=== PATIENT | male | born 1995 | race Caucasian/White ===

== ENCOUNTER 2019-01-28 13:35 | Emergency (ER) | payer BC, OTHER ==
[2019-01-28] MEDS ORDERED: Ibuprofen 800 MG Tab PO ONE (14:05)
[2019-01-28 14:14] VITALS: BP 132/77
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
--- NOTE | 2019-01-28 14:29 | CR ---
EXAMINATION: Right ankle HISTORY: Pain COMPARISON: None TECHNIQUE: 3 views FINDINGS/IMPRESSION: There is no acute osseous abnormality, dislocation, or fracture. Bone mineralization and joint spaces are preserved. Soft tissue swelling is noted surrounding the right ankle, most prominent over the lateral malleolus.
== END 2019-01-28 14:38 | disposition home or self-care (01) ==
LOC: MW.ED 13:35
DX: S99.911A Unspecified injury of right ankle, initial encounter (principal); V29.9XXA Motorcycle rider (driver) (passenger) injured in unspecified traffic accident, initial encounter
CPT/HCPCS: 73610; 99283; A9270

== ENCOUNTER 2019-06-03 09:45 | Day surgery (SDC) | payer BC, OTHER ==
[~2019-06-03 09:45] MED LIST: Lactated Ringers 1,000 ML IV SCH; Midazolam 1 MG/ML 2 ML SDV ONE; Propofol 200 MG/20 ML SDV ONE
--- NOTE | 2019-06-03 10:24 | PCM.PREANE ---
Preanesthetic Assessment - Anesthesia/Transfusion/Family Hx Anesthesia History: Prior Anesthesia Without Reaction Other Type of Anesthesia Reaction Comment: mother gets jittery and anxious when waking up from anesthesia Family History of Anesthesia Reaction: No Transfusion History: No Prior Transfusion(s) Intubation History: Unknown - Review of Systems General: No Symptoms Pulmonary: No Symptoms Cardiovascular: No Symptoms Neurological: No Symptoms, Change in Speech - Physical Assessment NPO Status Date: 06/02/19 NPO Status Time: 23:30 Vital Signs: Last Vital Signs Temp 37.0 C 06/03/19 10:11 Pulse 105 H 06/03/19 10:11 Resp 18 06/03/19 10:11 BP 136/78 06/03/19 10:11 Pulse Ox 99 06/03/19 10:11 Height: 5 ft 10 in Weight: 84.368 kg ASA Class: 2 Mental Status: Alert & Oriented x3 Airway Class: Mallampati = 2 Dentition: Reports: Normal Dentition, Broken Tooth/Teeth (upper and lower on the side) Thyro-Mental Finger Breadths: 3 Mouth Opening Finger Breadths: 3 ROM/Head Extension: Full Lungs: Clear to Auscultation, Normal Respiratory Effort Cardiovascular: Regular Rate, Regular Rhythm - Allergies Allergies/Adverse Reactions: Allergies Allergy/AdvReac Type Severity Reaction Status Date / Time No Known Allergies Allergy Verified 05/23/19 09:14 - Blood Blood Available: No - Anesthesia Plan Pre-Op Medication Ordered: None - Acknowledgements Anesthesia Type Planned: MAC Pt an Appropriate Candidate for the Planned Anesthesia: Yes Alternatives and Risks of Anesthesia Discussed w Pt/Guardian: Yes Pt/Guardian Understands and Agrees with Anesthesia Plan: Yes PreAnesthesia Questionnaire HEENT History: Reports: Other (See Below) Other HEENT History: glasses/contacts Cardiovascular History: Reports: None Respiratory History: Reports: None Gastrointestinal History: Reports: Other (See Below) Other Gastrointestinal History: apigastric pain, N&V, Genitourinary History: Reports: None Musculoskeletal History: Reports: Back Pain, Chronic Neurological History: Reports: Concussion Psychiatric History: Reports: Addiction (used heroin and meth 4 days ago, trying to quit), Anxiety, Depression Endocrine/Metabolic History: Reports: None Hematologic History: Reports: None Immunologic History: Reports: None Oncologic (Cancer) History: Reports: None Dermatologic History: Reports: Other (See Below) Other Dermatologic History: 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, rash on chest - Infectious Disease History Infectious Disease History: Reports: Chicken Pox - Past Surgical History Head Surgeries/Procedures: Reports: None HEENT Surgical History: Reports: Tonsillectomy Cardiovascular Surgical History: Reports: None Respiratory Surgical History: Reports: None GI Surgical History: Reports: None Male Surgical History: Reports: None Endocrine Surgical History: Reports: None Neurological Surgical History: Reports: None Musculoskeletal Surgical History: Reports: None Oncologic Surgical History: Reports: None Dermatological Surgical History: Reports: None - SUBSTANCE USE Smoking Status *Q: Current Every Day Smoker (1 ppd) Tobacco Use Within Last Twelve Months: Cigarettes Recreational Drug Type: Reports: Heroin, Marijuana/Hashish, Methamphetamine Recreational Drug Last Use: mother states he last used heroin (&possibly meth) on 05/21/19 - HOME MEDS Home Medications: Home Meds Omeprazole 20 mg PO DAILY 05/23/19 [History] Sucralfate [Carafate] 1 dose PO ASDIRECTED PRN 05/23/19 [History] clonazePAM [Klonopin] 1 mg PO ASDIRECTED PRN 05/23/19 [History] - CURRENT (IN HOUSE) MEDS Current Meds: Current Medications Lactated Ringer's (Ringers, Lactated) 1,000 mls @ 125 mls/hr IV ASDIRECTED [facility] Last Admin: 06/03/19 10:10 Dose: 125 mls/hr Discontinued Medications Lactated Ringer's (Ringers, Lactated) 1,000 mls @ 125 mls/hr IV ASDIRECTED [facility] Midazolam HCl (Versed 1 Mg/Ml) Confirm Administered Dose 2 mg .ROUTE .STK-MED ONE Stop: 05/27/19 10:23 Propofol (Diprivan 20 Ml) Confirm Administered Dose 400 mg .ROUTE .STK-MED ONE Stop: 05/27/19 10:23
[2019-06-03] MEDS ORDERED: Ondansetron 4 MG/2 ML SDV ONE (10:37)
[2019-06-03] MEDS ORDERED: Propofol 200 MG/20 ML SDV ONE (10:38)
[2019-06-03] MEDS ORDERED: fentaNYL 100 MCG/2 ML SDV ONE (10:38)
[2019-06-03] MEDS ORDERED: Midazolam 1 MG/ML 2 ML SDV ONE (10:38)
[2019-06-03] MEDS ORDERED: Lactated Ringers 1,000 ML IV SCH (12:15)
--- NOTE | 2019-06-03 12:18 | PCM.OPNOTE ---
- General Post-Op/Procedure Note Date of Surgery/Procedure: 06/03/19 Operative Procedure(s): Esophagogastroduodenoscopy with duodenal and gastric biopsy. Colonoscopy with cecal and transverse colon biopsy. Pre Op Diagnosis: Epigastric pain. Rectal bleeding with Hemoccult positive stool. Post-Op Diagnosis: Nonspecific gastritis & duodenitis. Nonspecific colitis. Anesthesia Technique: MAC (ASA II) Primary Surgeon: Gustavo Wolfe Condition: Good Free Text/Narrative:: DICTATION [id number] CPTCODE [id number]
[2019-06-03 12:29] VITALS: BP 105/56; PULSE 91
--- NOTE | 2019-06-03 12:29 | PCM.POSTAN ---
POST ANESTHESIA ASSESSMENT - MENTAL STATUS Mental Status: Alert, Oriented - VITAL SIGNS Vital Signs: Last Vital Signs Temp 37.0 C 06/03/19 10:11 Pulse 78 06/03/19 12:16 Resp 12 06/03/19 12:16 BP 90/43 L 06/03/19 12:16 Pulse Ox 97 06/03/19 12:16 - RESPIRATORY Respiratory Status: Respiratory Rate WNL, Airway Patent, O2 Saturation Stable - CARDIOVASCULAR CV Status: Pulse Rate WNL, Blood Pressure Stable - GASTROINTESTINAL GI Status: No Symptoms - PAIN Pain Score: 0 - POST OP HYDRATION Hydration Status: Adequate & Stable - OBSERVATIONS Free Text/Narrative:: no anesthesia problems
--- NOTE | 2019-06-03 12:38 | PCM48HPAN ---
Post Anesthesia Note - EVALUATION WITHIN 48HRS OF ANESTHETIC Vital Signs in Normal Range: Yes Patient Participated in Evaluation: Yes Respiratory Function Stable: Yes Airway Patent: Yes Cardiovascular Function Stable: Yes Hydration Status Stable: Yes Pain Control Satisfactory: Yes Nausea and Vomiting Control Satisfactory: Yes Mental Status Recovered: Yes Vital Signs: Last Vital Signs Temp 36.3 C 06/03/19 12:22 Pulse 91 06/03/19 12:22 Resp 18 06/03/19 12:22 BP 105/56 L 06/03/19 12:22 Pulse Ox 98 06/03/19 12:22 - COMMENTS/OBSERVATIONS Free Text/Narrative:: no anesthesia problems
--- NOTE | 2019-06-03 15:18 | OR ---
SURGEON: Gustavo Wolfe M.D. DATE OF PROCEDURE: 06/03/2019 OPERATION PERFORMED: Esophagogastroduodenoscopy with biopsy. PRIMARY SURGEON: Gustavo Wolfe MD. ANESTHESIA: MAC. ASA CLASSIFICATION: II. PREOPERATIVE DIAGNOSIS: Epigastric pain with Hemoccult positive stool. POSTOPERATIVE DIAGNOSIS: Mild gastritis and duodenitis, no acute ulceration. DESCRIPTION OF PROCEDURE: The patient was taken to the endoscopy room and positioned on the endoscopy table in the left lateral decubitus position. Time-out was called for appropriate identification of the patient and procedure. Monitored anesthesia care was provided. The bite block was placed between the patient's teeth. The gastroscope was inserted through the bite block and advanced without difficulty through the esophagus and stomach into the duodenum where examination was carried out in a retrograde fashion. The duodenal mucosa was quite pale and biopsies of this area were obtained. No acute ulcerations were noted in the duodenum or the duodenal bulb. The gastroscope was withdrawn into the stomach, which shows a mild to moderate gastritis. Antral biopsies were obtained to look for the presence of Helicobacter pylori. No acute ulcerations were noted. The gastroscope was retroflexed to visualize the proximal stomach. No lesions were noted proximally. No polyps were seen. The gastroscope was straightened and slowly withdrawn. The GE junction was well defined and shows no acute inflammatory changes or ulcerations. The esophagus demonstrates good contractility. No mid or proximal lesions were identified. Vocal cords were visualized as the scope was withdrawn and noted to move symmetrically. The gastroscope was then removed with the patient having tolerated this portion of the procedure well. Following colonoscopy, he was taken to recovery room in stable condition. CHYNA MEDINA /[id number]
--- NOTE | 2019-06-03 15:27 | OR ---
SURGEON: Gustavo Wolfe M.D. DATE OF PROCEDURE: 06/03/2019 OPERATION PERFORMED: Colonoscopy with cecal and transverse colon biopsy. PRIMARY SURGEON: Gustavo Wolfe MD. ANESTHESIA: MAC. ASA CLASSIFICATION: II. PREOPERATIVE DIAGNOSIS: Rectal bleeding and Hemoccult-positive stool. POSTOPERATIVE DIAGNOSIS: Nonspecific inflammatory changes in the cecum and transverse colon. DESCRIPTION OF PROCEDURE: With the patient having completed upper GI endoscopy, he was maintained in the left lateral decubitus position. The colonoscope was inserted into the rectum and advanced with minimal difficulty to the cecum where the colonoscope was retroflexed to visualize the ascending colon from below. The colonoscope was then straightened and slowly withdrawn. There were some nonspecific inflammatory changes noted and biopsies of the cecum were obtained. No acute ulcerations were noted. No polyps were seen and there was no evidence of severe inflammatory bowel disease. Similar changes were noted in the transverse colon and separate biopsies were obtained. The remainder of the transverse colon, splenic flexure, descending colon, sigmoid colon, and rectum showed no acute inflammatory changes or ulcerations. No diverticular changes were noted. Once the colonoscope was withdrawn to the rectum, it was retroflexed to visualize the anal orifice from above. No tumors or polyps were seen and there were no acute hemorrhoidal changes. The colonoscope was then straightened the rectum aspirated, and the colonoscope removed. The patient tolerated the procedure well and was taken to recovery room in stable condition. CHYNA MEDINA /[id number]
--- NOTE | 2019-06-03 16:03 | OR ---
SURGEON: Gustavo Wolfe M.D. DATE OF PROCEDURE: 06/03/2019 OPERATION PERFORMED: Colonoscopy with cecal and transverse colon biopsy. PRIMARY SURGEON: Gustavo Wolfe MD. ANESTHESIA: MAC. ASA CLASSIFICATION: II. PREOPERATIVE DIAGNOSIS: Rectal bleeding with Hemoccult-positive stool. POSTOPERATIVE DIAGNOSIS: No acute inflammatory changes. DESCRIPTION OF PROCEDURE: With the patient having completed upper GI endoscopy, he was maintained in the left lateral decubitus position. The colonoscope was inserted into the rectum and advanced with minimal difficulty to the cecum where the colonoscope was retroflexed to visualize the ascending colon from below. The colonoscope was then straightened and slowly withdrawn. There were some nonspecific Document redictated. See new & completed dictation. DICTATION ENDS HERE. CHYNA / CAROL /[id number] MTDD
== END 2019-06-03 12:43 | disposition home or self-care (01) ==
LOC: MW.SDS 09:45
PROVIDERS: ATTEND Surgery
DX: K62.5 Hemorrhage of anus and rectum (principal); R19.5 Other fecal abnormalities; K52.89 Other specified noninfective gastroenteritis and colitis; F17.210 Nicotine dependence, cigarettes, uncomplicated; Z79.899 Other long term (current) drug therapy
CPT/HCPCS: 45380; 88305; 88312; J2001; J2250; J2405; J2704; J3010; J7120; 00813

== ENCOUNTER 2021-01-19 12:11 | Emergency (ER) | payer BC, OTHER ==
[2021-01-19] MEDS ORDERED: Ketorolac 30 MG/ML SDV IVPUSH ONE (12:42)
[2021-01-19] MEDS ORDERED: Sodium Chloride 0.9% 1,000 ML IV ONE (12:42)
[2021-01-19] MEDS ORDERED: Ondansetron 4 MG/2 ML SDV IVPUSH ONE (12:42)
[2021-01-19] MEDS ORDERED: Sodium Chloride 0.9% 2.5 ML Syringe FLUSH PRN (12:42)
[2021-01-19] MEDS ORDERED: Sodium Chloride 0.9% 10 ML Syringe FLUSH PRN ×2 (12:42)
--- NOTE | 2021-01-19 12:54 | EDM.PDOC ---
ED HPI GENERAL MEDICAL PROBLEM - General Chief Complaint: Abdominal Pain Stated Complaint: STOMACH PAIN Time Seen by Provider: 01/19/21 12:16 Source of Information: Reports: Patient History Limitations: Reports: No Limitations - History of Present Illness INITIAL COMMENTS - FREE TEXT/NARRATIVE: HISTORY AND PHYSICAL: History of present illness: Patient is a 25-year-old male who presents emergency department secondary to a 12-hour history of periumbilical abdominal pain and nausea. Patient reports that he was awoken in the middle the night with it and has been persistent si nce. Patient reports that he has not taken anything for this. Patient states that the pain is a little better when he is lying on his side. Patient reports that he ate and drank normally yesterday and has no history of GI problems. Patient had some chills but did not take his temperature; denies feeling febrile. Patient states that he had a normal bowel movement yesterday but has not had a bowel movement today. Patient states that he is urinating normally. Patient has a pack a day smoker and uses marijuana daily but states that he rarely ever drinks. Patient denies fever, chest pain, shortness of breath, or cough. Denies headache, neck stiff ness, change in vision, syncope, or near syncope. Denies vomiting, diarrhea, constipation, or dysuria. Has not noted any blood in urine or stool. Patient has been eating and drinking appropriately. Review of systems: As per history of present illness and below otherwise all systems reviewed and negative. Past medical history: As per history of present illness and as reviewed below otherwise noncontributory. Surgical history: As per history of present illness and as reviewed below otherwise noncontributory. Social history: See social history for further information Family history: As per history of present illness and as reviewed below otherwise noncontributory. Physical exam: General: Patient is alert, oriented, and in no acute distress. Patient laying comfortably on exam table. Patient's vitals are stable and reviewed by me. HEENT: Atraumatic, normocephalic, pupils equal and reactive bilaterally, negative for conjunctival pallor or scleral icterus, mucous membranes moist, TMs normal bilaterally, throat clear, neck supple, nontender, trachea midline. No drooling or trismus noted. No meningeal signs. No hot potato voice noted. Lungs: Clear to auscultation, breath sounds equal bilaterally, chest nontender. Heart: S1S2, regular rate and rhythm without overt murmur Abdomen: Soft, nondistended, tender to palpation in periumbilical region, negative Barcenas sign, negative rebound tenderness, normal bowel sounds in all 4 quadrants. Negative for masses or hepatosplenomegaly. Negative for costovertebral tenderness. Pelvis: Stable nontender. Genitourinary: Deferred. Rectal: Deferred. Skin: Intact, warm, dry. No lesions or rashes noted. Extremities: Atraumatic, negative for cords or calf pain. Neurovascular unrema rkable. Neuro: Awake, alert, oriented. Cranial nerves II through XII unremarkable. Cerebellum unremarkable. Motor and sensory unremarkable throughout. Exam nonfocal. Notes: Patient is a 25-year-old male who presents emergency department secondary to a 12-hour history of periumbilical abdominal pain and nausea. Upon arrival to the ED, patient is vitally stable and resting comfortably on the exam table. Patient does have moderate periumbilical tenderness on exam Will obtain basic labwork and abdominal pelvis w contrast CT. CBC and CMP showed mild derangements but are unremarkable. Abdominal pelvis CT scan w contrast shows multiple mildly distended fluid-filled loops of small bowel in the left abdomen with mild wall thickening could represent a nonspecific enteritis. Normal appendix. No other acute findings in the abdomen or pelvis. Upon reexamination the patient, he remains vitally stable and comfortable throughout stay in ED. Signs and symptoms that were prompt return to the ED thoroughly discussed with patient. Discussed importance for follow-up with a primary care provider. Voices understanding and is agreeable to plan of care. Denies any further questions or concerns at this time. Diagnostics: CBC, CMP, lipase, abdominal pelvis contrast CT (patient declines UA) Therapeutics: Zofran, NS, Toradol Prescription: Zofran Impression: Abdominal pain Enteritis Plan: 1. Take medication as prescribed. Encourage small but frequent sips of fluid to prevent dehydration. 2. Follow-up with primary care provider as discussed. Return to the ED as needed and as discussed. Definitive disposition and diagnosis as appropriate pending reevaluation and review of above. abdominal Pain Score (Numeric/FACES): 8 - Related Data Allergies Allergy/AdvReac Type Severity Reaction Status Date / Time No Known Allergies Allergy Verified 01/19/21 12:38 Home Meds: Home Meds clonazePAM [Klonopin] 1 mg PO ASDIRECTED PRN 05/23/19 [History] Ondansetron [Zofran ODT] 4 mg PO Q6H PRN #8 tab.dis 01/19/21 [Rx] Past Medical History HEENT History: Reports: Other (See Below) Other HEENT History: glasses/contacts Cardiovascular History: Reports: None Respiratory History: Reports: None Gastrointestinal History: Reports: Other (See Below) Other Gastrointestinal History: apigastric pain, N&V, Genitourinary History: Reports: None Musculoskeletal History: Reports: Back Pain, Chronic Neurological History: Reports: Concussion Psychiatric History: Reports: Addiction, Anxiety, Depression Endocrine/Metabolic History: Reports: None Hematologic History: Reports: None Immunologic History: Reports: None Oncologic (Cancer) History: Reports: None Dermatologic History: Reports: Other (See Below) Other Dermatologic History: 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, rash on chest - Infectious Disease History Infectious Disease History: Reports: Chicken Pox - Past Surgical History Head Surgeries/Procedures: Reports: None HEENT Surgical History: Reports: Adenoidectomy, Tonsillectomy Cardiovascular Surgical History: Reports: None Respiratory Surgical History: Reports: None GI Surgical History: Reports: None Male Surgical History: Reports: None Endocrine Surgical History: Reports: None Neurological Surgical History: Reports: None Musculoskeletal Surgical History: Reports: None Oncologic Surgical History: Reports: None Dermatological Surgical History: Reports: None Social & Family History - Family History Family Medical History: No Pertinent Family History - Tobacco Use Packs/Tins Daily: 1 - Recreational Drug Use Recreational Drug Use: Yes Recreational Drug Type: Reports: Marijuana/Hashish Recreational Drug Use Frequency: Socially ED ROS GENERAL - Review of Systems Review Of Systems: Comprehensive ROS is negative, except as noted in HPI. ED EXAM, GENERAL - Physical Exam Exam: See Below (see dictation) Course - Vital Signs Last Recorded V/S: Last Vital Signs Temp 96.1 F L 01/19/21 12:26 Pulse 54 L 01/19/21 14:34 Resp 16 01/19/21 14:09 BP 111/82 01/19/21 14:34 Pulse Ox 98 01/19/21 14:34 - Orders/Labs/Meds Orders: Active Orders 24 hr Category Date Time Status Saline Lock Insert [OM.PC] Stat Oth 01/19/21 12:42 Ordered Labs: Laboratory Tests 01/19/21 01/19/21 Range/Units 12:35 12:35 WBC 10.41 (4.0-11.0) K/uL RBC 5.44 (4.50-5.90) M/uL Hgb 16.0 (13.0-17.0) g/dL Hct 48.1 (38.0-50.0) % MCV 88.4 (80.0-98.0) fL MCH 29.4 (27.0-32.0) pg MCHC 33.3 (31.0-37.0) g/dL RDW Std Deviation 43.4 (28.0-62.0) fl RDW Coeff of Alex 13 (11.0-15.0) % Plt Count 361 (150-400) K/uL MPV 10.00 (7.40-12.00) fL Neut % (Auto) 74.6 (48.0-80.0) % Lymph % (Auto) 17.0 (16.0-40.0) % [place] % (Auto) 6.2 (0.0-15.0) % Eos % (Auto) 1.7 (0.0-7.0) % Baso % (Auto) 0.5 (0.0-1.5) % Neut # (Auto) 7.8 H (1.4-5.7) K/uL Lymph # (Auto) 1.8 (0.6-2.4) K/uL [place] # (Auto) 0.7 (0.0-0.8) K/uL Eos # (Auto) 0.2 (0.0-0.7) K/uL Baso # (Auto) 0.1 (0.0-0.1) K/uL Nucleated RBC % 0.0 /100WBC Nucleated RBCs # 0 K/uL Sodium 138 (136-148) mmol/L Potassium 4.5 (3.5-5.1) mmol/L Chloride 100 (98-107) mmol/L Carbon Dioxide 28.6 (21.0-32.0) mmol/L BUN 16 (7.0-18.0) mg/dL Creatinine 0.9 (0.8-1.3) mg/dL Est Cr Clr Drug Dosing 132.47 mL/min Estimated GFR (MDRD) > 60.0 ml/min Glucose 113 H (74-106) mg/dL Calcium 9.1 (8.5-10.1) mg/dL Total Bilirubin 0.5 (0.2-1.0) mg/dL AST 29 (15-37) IU/L ALT 55 (14-63) IU/L Alkaline Phosphatase 96 (46-116) U/L Total Protein 8.2 (6.4-8.2) g/dL Albumin 4.3 (3.4-5.0) g/dL Globulin 3.9 (2.6-4.0) g/dL Albumin/Globulin Ratio 1.1 (0.9-1.6) Lipase 77 (73-393) U/L Meds: Medications Discontinued Medications Generic Name Dose Route Start Last Admin Trade Name Freq PRN Reason Stop Dose Admin Sodium Chloride 1,000 mls @ 999 mls/hr 01/19/21 12:42 01/19/21 12:51 Normal Saline IV 01/19/21 13:42 999 mls/hr BOLUS ONE Administration Iopamidol 100 ml 01/19/21 13:35 01/19/21 13:35 Iopamidol 755 Mg/Ml 500 Ml Multipack Bottle IVPUSH 01/19/21 13:36 100 ml ONETIME STA Administration Ketorolac Tromethamine 30 mg 01/19/21 12:42 01/19/21 12:51 Ketorolac 30 Mg/Ml Sdv IVPUSH 01/19/21 12:43 30 mg ONETIME ONE Administration Ondansetron HCl 4 mg 01/19/21 12:42 01/19/21 12:51 Ondansetron 4 Mg/2 Ml Sdv IVPUSH 01/19/21 12:43 4 mg ONETIME ONE Administration Sodium Chloride 2.5 ml 01/19/21 12:42 01/19/21 12:51 Sodium Chloride 0.9% 2.5 Ml Syringe FLUSH 2.5 ml ASDIRECTED PRN Administration Keep Vein Open Sodium Chloride 10 ml 01/19/21 12:42 01/19/21 12:51 Sodium Chloride 0.9% 10 Ml Syringe FLUSH 10 ml ASDIRECTED PRN Administration Keep Vein Open Sodium Chloride 10 ml 01/19/21 12:42 01/19/21 12:51 Sodium Chloride 0.9% 10 Ml Syringe FLUSH 10 ml ASDIRECTED PRN Administration Keep Vein Open Departure - Departure Time of Disposition: 14:20 Disposition: Home, Self-Care 01 Clinical Impression: Enteritis Abdominal pain Qualifiers: Abdominal location: periumbilical Qualified Code(s): R10.33 - Periumbilical pain - Discharge Information Prescriptions: Ondansetron [Zofran ODT] 4 mg PO Q6H PRN #8 tab.dis PRN Reason: Nausea/Vomiting Instructions: Abdominal Pain, Adult, [id number] Referrals: Mala Delarosa MD [Primary Care Provider] - Forms: ED Department Discharge Additional Instructions: The following information is given to patients seen in the emergency department who are being discharged to home. This information is to outline your options for follow-up care. We provide all patients seen in our emergency department with a follow-up referral. The need for follow-up, as well as the timing and circumstances, are variable depending upon the specifics of your emergency department visit. If you don't have a primary care physician on staff, we will provide you with a referral. We always advise you to contact your personal physician following an emergency department visit to inform them of the circumstance of the visit and for follow-up with them and/or the need for any referrals to a consulting specialist. The emergency department will also refer you to a specialist when appropriate. This referral assures that you have the opportunity for follow-up care with a specialist. All of these measure are taken in an effort to provide you with optimal care, which includes your follow-up. Under all circumstances we always encourage you to contact your private physician who remains a resource for coordinating your care. When calling for follow-up care, please make the office aware that this follow-up is from your recent emergency room visit. If for any reason you are refused follow-up, please contact the [facility] Emergency Department at and asked to speak to the emergency department charge nurse. [facility] [address] [place] [id number] [id number] 1. Take medication as prescribed. Encourage small but frequent sips of fluid to prevent dehydration. 2. Follow-up with primary care provider as discussed. Return to the ED as needed and as discussed. Sepsis Event Note (ED) - Evaluation Sepsis Screening Result: No Definite Risk - Focused Exam Vital Signs: Vital Signs Temp Pulse Resp BP Pulse Ox 01/19/21 14:34 54 L 111/82 98 01/19/21 14:09 52 L 16 117/65 97 01/19/21 13:31 54 L 15 109/61 98 01/19/21 12:55 61 125/79 98 01/19/21 12:26 96.1 F L 73 127/71 98 - My Orders Last 24 Hours: My Active Orders 01/19/21 12:42 Saline Lock Insert [OM.PC] Stat - Assessment/Plan Last 24 Hours: My Active Orders 01/19/21 12:42 Saline Lock Insert [OM.PC] Stat
[2021-01-19 13:19] LABS: BLOOD UREA NITROGEN,BUN 16 mg/dL (7.0-18.0); CARBON DIOXIDE,CO2 28.6 mmol/L (21.0-32.0); CHLORIDE,CL 100 mmol/L (98-107); GLUCOSE RANDOM 113 mg/dL (74-106); LIPASE 77 U/L (73-393); POTASSIUM,K 4.5 mmol/L (3.5-5.1); SODIUM,NA 138 mmol/L (136-148)
[2021-01-19] MEDS ORDERED: Iopamidol 755 MG/ML 500 ML Multipack Bottle IVPUSH STA (13:35)
--- NOTE | 2021-01-19 14:14 | CT ---
INDICATION: Diffuse abdominal pain. TECHNIQUE: CT of the abdomen and pelvis with 100 cc Isovue 370 IV contrast. Coronal and sagittal reconstructions. COMPARISON: None. FINDINGS: Tiny low-attenuation lesion versus focal fatty infiltration in the anterior left hepatic lobe near the falciform ligament (series 201, image 47). Hepatic and portal veins are patent. The gallbladder, spleen, pancreas, and adrenal glands are negative. Splenules. Symmetric enhancement of the kidneys. No hydronephrosis. No obstructing urinary calculi. The bladder is unremarkable. Mildly enlarged prostate gland. Multiple mildly distended fluid-filled loops of small bowel in the left abdomen with mild wall thickening could represent a nonspecific enteritis. No evidence of bowel obstruction. The colon is normal in appearance. Negative appendix. No intraperitoneal free air or fluid. Multiple small bilateral inguinal lymph nodes are likely reactive. No lymphadenopathy by size criteria. The bones are unremarkable. The lung bases are clear. IMPRESSION: 1. Multiple mildly distended fluid-filled loops of small bowel in the left abdomen with mild wall thickening could represent a nonspecific enteritis. 2. No other acute findings in the abdomen or pelvis. Please note that all CT scans at this facility use dose modulation, iterative reconstruction, and/or weight-based dosing when appropriate to reduce radiation dose to as low as reasonably achievable. Dictated by Carmelina Bethea MD @ 01/19/2021 2:12:[address] Carmelina Bethea @ Jan 19 2021 2:12PM
[2021-01-19 14:35] VITALS: BP 111/82; PULSE 54
== END 2021-01-19 14:35 | disposition home or self-care (01) ==
LOC: MW.ED 12:11
DX: K52.9 Noninfective gastroenteritis and colitis, unspecified (principal); Z72.0 Tobacco use
CPT/HCPCS: 36415; 74177; 80053; 83690; 85025; 96374; 96375; 99284; J1885; J2405; J7030; Q9967; 99283

== ENCOUNTER 2024-01-22 04:03 | Emergency (ER) | payer BC, OTHER ==
[2024-01-22 05:43] VITALS: BP 135/92; PULSE 85
== END 2024-01-22 06:00 | disposition home or self-care (01) ==
LOC: MW.ED 04:03
DX: T40.2X1A Poisoning by other opioids, accidental (unintentional), initial encounter (principal); Z79.899 Other long term (current) drug therapy; Z75.8 Other problems related to medical facilities and other health care
CPT/HCPCS: 99283